=== PATIENT | female | born 1950 | race Caucasian/White ===

== ENCOUNTER 2022-08-13 19:19 | Outpatient (CLI) | payer MEDICARE, BC, SELFPAY | END 2022-08-13 19:20 | disposition home or self-care (01) | PROVIDERS: Visit Provider Family Medicine | DX: R07.89 Other chest pain (principal) | CPT/HCPCS: A0425; A0427 ==

== ENCOUNTER 2022-08-17 04:45 | Outpatient (CLI) | payer MEDICARE, BC, SELFPAY | END 2022-08-17 04:46 | disposition home or self-care (01) | LOC: AMB 08-25 11:23 | PROVIDERS: Visit Provider Family Medicine | DX: R07.89 Other chest pain (principal) | CPT/HCPCS: A0425; A0433 ==